=== PATIENT | female | born 1965 | race Caucasian/White ===

== ENCOUNTER 2017-11-01 04:11 | Emergency (ER) | payer MEDICAID ==
[~2017-11-01] VITALS: Ht 152.4 cm; Wt 86.2 kg
[2017-11-01 04:33] VITALS: BP_SYST 149
[2017-11-01] MEDS ORDERED: VANCOMYCIN HCL 1,000 MG in NS 250 ML IV ONE (05:00)
[2017-11-01] MEDS ORDERED: VANCOMYCIN HCL 1000 MG/VIAL IV ONE (05:10)
[2017-11-01 06:55] VITALS: BP_SYST 135
== END 2017-11-01 06:55 | disposition home or self-care (01) ==
LOC: SED 04:11
DX: L03.315 Cellulitis of perineum (principal)
CPT/HCPCS: 87070; 87186; 96365; 96366; 99285; J3370; J7050